=== PATIENT | male | born 1955 | race Caucasian/White ===

== ENCOUNTER 2016-08-17 23:08 | Inpatient (IN) | payer OTHER ==
[~2016-08-17] VITALS: Ht 175.3 cm; Wt 120.2 kg
[2016-08-17 23:32] LABS: HEMATOCRIT 48.7 % (38.0-50.0); MCH 28.4 PG (29.0-34.0); MCHC 32.6 G/DL (30.0-36.0); MCV 87.1 FL (86-99); MEAN PLAT.VOLUME 10.1 uM^3 (9.0-12.4); PLATELET COUNT 152 K/uL (156-360); RBC DIS.WIDTH-CV 17.4 % (11.8-14.6); RBC DIS.WIDTH-SD 54.4 % (39-53); RED BLOOD COUNT 5.59 M/uL (4.00-5.50); WHITE BLOOD COUNT 11.2 K/uL (4.1-10.2)
[2016-08-17 23:36] LABS: CARBON DIOXIDE (BICARBONATE) 23.4 MEQ/L (20-31)
[2016-08-17 23:46] LABS: CHLORIDE 110 mEq/L (99-109); POTASSIUM 4.3 mEq/L (3.7-5.4); SODIUM 142 mEq/L (136-147)
[2016-08-17 23:48] LABS: GLUCOSE 204 mg/dL (70-99)
[2016-08-17 23:50] LABS: ANION GAP 12 MEQ/L (2-14)
[2016-08-17 23:52] LABS: GFR ESTIMATE (CALCULATED) > 59 mL/min/
[2016-08-17 23:53] LABS: UREA NITROGEN (BUN) 17 mg/dL (9-23)
[2016-08-17 23:57] LABS: TROP-I INTERPRETATION NEGATIVE; TROPONIN-I < 0.01 ng/mL (0.0-0.30)
[2016-08-18 04:04] VITALS: BP 126/87
[2016-08-18 07:47] VITALS: BP 131/81
[2016-08-18 11:08] VITALS: BP 139/84
[2016-08-18] MEDS ORDERED: LASIX40 MG PO (11:33)
== END 2016-08-18 11:45 | disposition home or self-care (01) | DRG 292 ==
LOC: EDBD 23:08 → EME 23:08 → EDOF 08-18 02:14 → 4EAST 08-18 03:39
PROVIDERS: Emergency Medicine
DX: I50.23 Acute on chronic systolic (congestive) heart failure (principal); J44.9 Chronic obstructive pulmonary disease, unspecified; F10.10 Alcohol abuse, uncomplicated; E11.8 Type 2 diabetes mellitus with unspecified complications; R60.0 Localized edema; I10 Essential (primary) hypertension; R06.89 Other abnormalities of breathing; I42.9 Cardiomyopathy, unspecified; Z60.2 Problems related to living alone; Z91.19 Patient's noncompliance with other medical treatment and regimen; Z96.651 Presence of right artificial knee joint
CPT/HCPCS: 71010; 80048; 82803; 83605; 83880; 84484; 85027; 87040; 93005; 94002; 94640; 94760; 94799; 99202; 99281; 99285; J1940